=== PATIENT | male | born 1930 | race Caucasian/White ===

== ENCOUNTER → 2017-01-10 | Outpatient (CLI) | payer MEDICARE, OTHER ==
[~2017-01-10] MED LIST: AMIO200T2 PO; ATOR10TA64 PO; CA C1TAB67 PO; COLC0.6C3 PO; GABA-336 PO; MAGN250T33 PO; METO-275 PO; POLY17PO3 PO
--- NOTE | 2017-01-10 13:58 | STEVAL ---
Eval Subjective and History Date/Time of Eval DATE: 01/10/17 TIME: 13:52 Medical Diagnosis MODIFIED BARIUM SWALLOW STUDY SECONDARY TO PHARYNGEAL STAGE DYSPHAGIA (R13.13) Treatment Order: Assessment Orientations: x 3, Alert, Cooperative Primary Complaint: OROPHARYNGEAL DYSPHAGIA (R13.12) Pain: No Date of Onset of Primary Com: 01/10/17 (DATE OF MBSS) Secondary Complaint: INCREASED RISK OF ASPIRATION Clinical Test Results: MBSS COMPLETED Prior History of This Problem: No Patient's Goals: PATIENT'S PERSONAL GOALS NOT EXPRESSED Medical History Form Reviewed: Yes Residence Type: [facility] (PATIENT RESIDES AT 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 HE IS AT A SIGNIFICANT RISK FOR ASPIRATION. Education Subject: Diet, Treatment Plan Person(s) Educated: Patient Instruction Understanding Demo: Pt. verbalizes understand Education Comment SUPERVISOR CLEANING [employer] ANNEALING educated patient on reasoning for evaluation and was agreeable to evaluation. He was also educated on the results of the study and the therapists recommendations. Patient verbalized understanding. Subjective and History Comment: TOM WAS EVALUATED WHILE SITTING UPRIGHT AT 90 DEGREES IN A HAUSTED CHAIR. HE HAD NO ACUTE C/O PAIN OR FATIGUE AT THE TIME. PATIENT REPORTED THAT HIS LIQUIDS ARE THICKENED AT [facility] AND THAT HE COUGHS OCCASIONALLY DURING MEALS. PATIENT PRESENTED WITH A WEAK VOICE AND REPORTED THAT IT HAD BEEN THAT WAY FOR A "COUPLE OF MONTHS." PATIENT WAS AGREEABLE TO HAVING PATCHER CLINICIAN, CASSI, CONDUCT THE EVALUATION WHILE SUPERVISOR CLEANING AND ANNEALING ANDREEA SUPERVISED. Modified Barium Swallow Lateral View Oral Phase : Lateral View Food Presentation: Thin Liquid via Spoon (1 TRIAL IN LATERAL VIEW), Honey Liquid via Spoon (2 TRIALS IN LATERAL VIEW), Solid- Dm Cracker (1 TRIAL IN LATERAL VIEW), Syrup liquid via spoon (3 TRIALS IN LATERAL VIEW), Syrup liquid via cup (2 TRIALS IN LATERAL VIEW), Pudding via spoon (2 TRIALS IN LATERAL VIEW) Number Presentations Lat View: 1-3 Labial Closure: No Impairment (WFL) Bolus Formation Pooling L/R: No Impairment (WFL) Bolus Formation Under Tongue: Moderate Impairment Bolus Formation Scattered Loss: No Impairment (WFL) Mastication Rotary Chew: Moderate Impairment Mastication Munching: Mild Impairment Mastication Laterization: Mild Impairment A/P Lingual Propulsion Spills: No Impairment (WFL) A/P Lingual Propulsion Delay: Severe Impairment Lingual Movement: No Impairment (WFL) Residue Clearing: No Impairment (WFL) Premature Swallow: Moderate Impairment (MODERATE IMPAIRMENT ON THIN AND NECTAR CONSISTENCIES) Other Oral Phase Observations: PATIENT PRESENTS WITH POOR LINGUAL MOVEMENT AND INCOORDINATION, AND POOR A/P MOVEMENT WITH POOLING POSTERIOR AND UNDERNEATH THE TONGUE. MASTICATION WAS POOR WITH INABILITY TO FORM A COHESIVE BOLUS FOR ORAL TRANSIT. ANTERIOR MUNCHING WAS OBSERVED AND MASTICATION LATERALIZATION WAS MILD TO MODERATELY REDUCED. A PREMATURE SWALLOW WAS OBSERVED SEVERAL TIMES ON THIN AND NECTAR CONSISTENCIES. PATIENT'S NATURAL DENTITION WAS FAIR. Swallow Response Delay: No Impairment (WFL) Base of Tongue: Moderate Impairment (LINGUAL PUMPING OBSERVED) Epiglottic Coverage: Severe Impairment Laryngeal Elevation: Mild Impairment (LARYNGEAL ELEVATION WAS MILDLY IMPAIRED; LARYNGEAL EXCURSION WAS MODERATELY IMPAIRED) Vallecular Retention Clearing: Moderate Impairment (MODERATE TO SEVERE AMOUNTS OF VALLECULAR RESIDUE WAS OBSERVED WITH NECTAR, HONEY, AND PUDDING CONSISTENCIES ) [email or web address].Wall Residue Clearing: Mild Impairment Pyriform Sinus Clearing: Moderate Impairment (MODERATE AMOUNTS OF RESIDUE OBSERVED IN THE PYRIFORM SINUSES POST SWALLOW WITH NECTAR, HONEY, AND PUDDING CONSISTENCIES) Compensatory Strategies: Secondary Swallow (PATIENT WAS INSTRUCTED TO COMPLETE A SECONDARY SWALLOW ON MOST TRIALS OF NECTAR, HONEY, AND PUDDING CONSISTENCIES) , Clear throat/swallow, Effortful swallow (PATIENT COMPLETED THIS 2X), Supraglottic, Head rotation (L) (INEFFECTIVE), Head rotation (R) (INEFFECTIVE) Other Pharyngeal Phase Observ.: PATIENT PRESENTS WITH A SEVERELY IMPAIRED PHARYNGEAL PHASE OF SWALLOW CHARACTERIZED BY THE FOLLOWING: PROFOUND REDUCTION IN EPIGLOTTIC COVERAGE, INSUFFICIENT BASE OF TONGUE RETRACTION, AND POOLING DOWN TO PYRIFORMS WITH RESIDUE IN THE VALLECULAE (GREATER WITH THICKER CONSISTENCIES). REDUCED PHARYNGEAL PRESSURE WAS ALSO OBSERVED. MILDLY REDUCED HYOLARYNGEAL ELEVATION AND MODERATELY REDUCED HYOLARYNGEAL EXCURSION WAS NOTED. PATIENT REQUIRED USE OF SECONDARY SWALLOW AND THROAT CLEAR/SWALLOW ON SEVERAL ATTEMPTS IN ORDER TO HELP CLEAR VALLECULAR AND PYRIFORM RESIDUE. PENETRATION APPRECIATED WITH: NECTAR LIQUIDS VIA TEASPOON AND HONEY LIQUIDS VIA TEASPOON. SILENT ASPIRATION APPRECIATED WITH: NECTAR LIQUIDS VIA TEASPOON, NECTAR LIQUIDS VIA CUP SIP, AND THIN LIQUIDS VIA TEASPOON. PATIENT WAS CUED TO CLEAR HIS THROAT AND COUGH. A/P View Food Presentation: Honey Liquid via Spoon (1 TRIAL), Syrup liquid via spoon (2 TRIALS ) Number Presentations A/P View: 1 A/P View Vocal Cord Function: Poor, Decrease Approxim. Left A/P View Residue Found In: Valleculae Right, Valleculae Left, Pyriform Sinus Right, Pyriform Sinus Left A/P View Esophogeal Function: No Impairment (WFL) A/P View Other Observations: PATIENT'S VOCAL FOLD FUNCTION WAS POOR, WITH DECREASED APPROXIMATION ON THE L SIDE. RESIDUE WAS OBSERVED IN BOTH VALLECULAE, WELL BOTH PYRIFORM SINUSES WITH NECTAR, HONEY, AND PUDDING CONSISTENCIES. Assessment/Plan of Care Speech Therapy Impressions: PATIENT PRESENTS WITH SEVERE OROPHARYNGEAL DYSPHAGIA. HE WAS SEATED UPRIGHT IN A HAUSTED CHAIR AT 90 DEGREES FOR THE EVALUATION. PENETRATION WAS APPRECIATED WITH NECTAR AND HONEY THICK LIQUIDS VIA TEASPOON. ASPIRATION WAS APPRECIATED WITH NECTAR THICK LIQUIDS VIA TEASPOON AND CUP SIP, AND THIN LIQUIDS VIA TEASPOON. DUE TO PRESENCE OF PENETRATION/ASPIRATION, WE RECOMMEND PATIENT CONSUME A PUREED DIET WITH HONEY THICK LIQUIDS. ST Treatment Plan: Evaluation Only ST Treatment Plan Frequency: N/A Treatment Plan Duration: N/A Plan of Care Comment 1) PUREED DIET WITH HONEY THICK LIQUIDS 2) SWALLOW PRECAUTIONS: ALTERNATE SOLIDS/LIQUIDS, TAKE SMALL SIPS/BITES, EAT AT A SLOW PACE, CHIN TUCK 3) SWALLOW RETRAINING 4) FOLLOW-UP WITH ENT FOR REDUCED VOICING AND INCOMPLETE VC CLOSURE Recommended Diet: PUREED WITH HONEY THICK LIQUIDS Date of Visit 01/10/17 Time Visit Began: 13:15 Time Visit Ended: 13:35 ST Assess/Plan of Care: ST Treatment Charge: Swallow Eval Minutes of Individual Therapy: 20 GCODE Swallowing: G8996 - current Severity Modifier: CL - 60-79% Swallowing: G8997 - goal Severity Modifier: CL - 60-79% Swallowing: G8998 - d/c Severity Modifier: CL - 60-79% CASSI HIRSCH Jan 10, 2017 13:55
--- NOTE | 2017-01-10 15:34 | DI ---
Indication:ITS.REASON: R13.13 Dysphagia, pharyngeal phase; R47.02 Dysphasia Procedure:MODIFIED BAR. SWALLOW STUDY MODIFIED BAR. SWALLOW STUDY: Videofluoroscopy was performed in conjunction with a public relations representative from speech pathology and a separate report and recommendations will be provided. Varying gradations of barium from thin to pudding were administered. Aspiration was noted with thin, nectar, and syrup consistencies. On the AP view the bolus showed no obvious preference for either side. Impression: Aspiration with thin, nectar, and syrup consistencies. Please see the speech pathology report for additional details and recommendations. Fluoroscopy dose: 7.82 mGy (Cumulative air kerma) Benedict Mcgowan RPA/TED performed this under my direct supervision. .
== END ==
LOC: IMA 12:51
PROVIDERS: ATTEND Family Medicine
DX: R93.3 Abnormal findings on diagnostic imaging of other parts of digestive tract (principal); R13.13 Dysphagia, pharyngeal phase; R13.12 Dysphagia, oropharyngeal phase; R47.02 Dysphasia
CPT/HCPCS: 74230; 92611; G8996; G8997; G8998